=== PATIENT | male | born 1960 | race Caucasian/White ===

== ENCOUNTER 2023-08-23 10:52 | Emergency (ER) | payer BC, SELFPAY ==
[2023-08-23] VITALS (7 sets, daily range): BP systolic 109–119; BP diastolic 68–79; PULSE 71–89; BMI 27.3
--- NOTE | 2023-08-23 11:20 | ED.GENMED ---
History of Present Illness
General
Chief Complaint: Fainting/Passed Out
Source: patient and ambulance crew
Time Seen by Provider: 08/23/23 11:06
Travel History
Have you had any contact with someone who has COVID-19?: No
Do you have any symptoms of coronavirus? Fever > 100 degrees, chills, cough, shortness of breath, sore throat, loss of taste or smell, muscle aches, or headache?: No
History of Present Illness
History of Present Illness:
63-year-old male with past medical history of previous A-fib presenting to the ER via EMS from home after patient had a suppose an syncopal episode after driving home from the gym and playing pickle ball earlier this morning. While at the gym
patient was getting changed and took his shoes off and noticed a rash on his feet and legs, started to drive home when he started to feel as if you are going to pass out. Patient remembers getting in to his driveway at home and then remembers
waking up with his over him in the front seat of their car. had contacted EMS with concerns patient had syncopized. Upon arrival EMS did give the patient 50 mg of Benadryl and 4 mg of Zofran as he had 1 episode of nonbloody nonbilious
emesis. Patient states that he still feels full body generalized weakness but no longer nauseous. He denies any fevers or recent illnesses, bowel changes, urinary symptoms. Patient states he cannot remember what would have potentially caused a
rash as he denies any new clothing, foods, soaps or detergents or anything that may have triggered the rash.
Past History
Past History
ED Past Medical History: Arrthythmia (afib)
ED Past Surgical History: Other (Hernia repair); Negative Cardiac
Social History
Tobacco: Non-smoker
Alcohol: Occasional
Drug: None
Personal:
Living: with family
Employment: Employed
Family History
Family History: Other (Noncontributory)
Review of Systems
Review of Systems
All Other Systems: ROS reviewed and negative except as documented in HPI and ROS
Phy Exam
Physical Exam
Physical Exam:
GENERAL: Alert , in no apparent distress, holding eyes closed for majority of the exam
EYE: conjunctiva clear
NECK: Supple, no significant adenopathy. No airway compromise
ENT: o/p clr, mmm. No tonsillar edema or stridor
CARDIAC: Regular rate and rhythm, no murmur
LUNGS: Clear breath sounds bilaterally, no acute respiratory distress, no wheezes/rales/rhonchi
NEUROLOGICAL: Alert and oriented
SKIN: Warm and dry, diffuse erythematous blanching hives along the neck, abdomen and back and bilateral lower extremities
MUSCULOSKELETAL: well perfused.
PSYCH: Normal and appropriate interaction.
Scores
Heart Failure Risk
Heart Failure Risk Score: Not Applicable
Heart Score for Chest Pain Patients
STEMI patient?: Not applicable
Withdrawal Assessment of Alcohol
Withdrawal Assessment Completed?: Not applicable
Course
Orders/Labs/Results
Orders:
Orders
08/23/23 11:19
Electrocardiogram (*1) Urgent
Reason for Study: Syncope
EKG- Treatment ONCE
08/23/23 11:20
Orthostatic VS- Treatment ONCE
08/23/23 11:48
Complete Blood Count/With Diff Urgent
08/23/23 13:06
COVID-19 Antigen Urgent
Source: Nasal Swab
Comprehensive Metabolic Panel Urgent
Troponin I Urgent
Influenza A+B Rapid Molecular Urgent
HANNAH Source: Nasal Swab
Specimen Description:
08/23/23 13:46
Orthostatic VS- Treatment ONCE
Abnormal Lab Results
08/23/23 08/23/23
11:48 13:06
WBC 12.5 H 10^3/uL
(4.8-10.8)
MPV 10.5 H fL
(7.4-10.4)
Absolute Neuts (auto) 10.2 H 10^3/uL
(1.4-6.5)
Absolute Monos (auto) 0.7 H 10^3/uL
(0.1-0.6)
Neutrophils % 81.1 H %
(42.2-75.2)
Lymphocytes % 11.9 L %
(20.5-51.1)
BUN 23 H mg/dl
(9-20)
Glucose 101 H mg/dl
(70-99)
Total Protein 6.1 L g/dl
(6.3-8.2)
08/23/23 11:48
08/23/23 13:06
Vital Signs
Initial and Last Documented VS:
Initial Vital Signs
BP
109/79
08/23/23 10:55
Last Documented Vital Signs
Pulse Resp BP Pulse Ox
73 16 119/73 81
08/23/23 14:36 08/23/23 11:03 08/23/23 14:36 08/23/23 14:36
MDM/Problems Addressed
Differential Diagnosis Includes:
Vasovagal syncope, cardiogenic syncope, electrolyte disturbance, orthostasis, contact dermatitis of unspecified etiology
MDM/Problems Addressed:
63-year-old male presenting emergency department for evaluation following a syncopal episode and acute onset of rash that developed shortly after playing pickle ball at the gym. Unclear etiology of patient's rash. Rash is still present at time of
my evaluation but patient states the pruritus has mostly resolved. Patient still feeling near syncopal and generally weak. Will check labs, EKG and treat with fluids. Reassessment following.
*Pulse Oximetry
Patient hypoxic: no
*EKG
Interpreted by ED Provider?: Yes
Comparison EKG: no changes
Heart Rate: 71
Rate: normal
[place]: left axis deviation
Ischemia: no ischemia
*Test Clerk Interpretation
Rate: normal
Rhythm: sinus
*Critical Care Note
Total Time (30-74mins, 75-104mins- exclusive of procedures): Not Applicable
ED Attending Note
-
Portions of this chart may have been created with voice recognition software.� Occasional wrong word or��sound alike� substitutions may have occurred due to the inherent limitations of voice recognition software.
Discharge Plan
Departure
Patient Disposition: Home (Routine Discharge)
Date of Disposition: 08/23/23
Time of Disposition: 14:36
Patient with high blood pressure during this ER visit?: No
Discharge Problem:
Syncope, Rash and nonspecific skin eruption
Instructions: Syncope (Fainting) (DC)
Prescriptions:
New
epinephrine [EpiPen 2-Jason] 0.3 mg/0.3 mL auto-injector
0.3 mg IM ONCE PRN (Reason: anaphylaxis) Qty: 2 0RF
No Action
digoxin 0.125 MG tablet
0.125 mg PO DAILY
propafenone [Rythmol SR] 225 MG capsule,extended release 12 hr
225 mg PO BID
omega-3 fatty acids-fish oil [Fish Oil] 1 EACH capsule
1 ea PO DAILY
apixaban [Eliquis] 5 MG tablet
5 mg PO BID
prednisone 20 mg tablet
40 mg PO DAILY Qty: 6 0RF
Referrals:
Kenny Ramos DO [Family Provider] -
Interventions
Interventions:
*Risk Screen - Suicide Last Done: 08/23/23 11:11
*General Assessment Last Done: 08/23/23 11:09
*Neglect/Abuse Screening Last Done: 08/23/23 11:11
ED- Fall Risk Assessment Last Done: 08/23/23 11:12
*ED COVID-19 Vaccine History Last Done: 08/23/23 11:09
ED- Cardiac Assessment Last Done: 08/23/23 11:12
ED- Neurological Assessment Last Done: 08/23/23 11:12
[2023-08-23 12:02] LABS: % Basophils 0.2 % (0-2); % Eosinophils 0.8 % (0-6); % Immature Granulocytes 0.3 % (0-0.5); % Lymphocytes 11.9 % (20.5-51.1); % Monocytes 5.7 % (1.7-9.3); % Neutrophils 81.1 % (42.2-75.2); Absolute Eosinophils 0.1 10^3/uL (0-0.7); Absolute Lymphocytes 1.5 10^3/uL (1.2-3.4); Absolute Monocytes 0.7 10^3/uL (0.1-0.6); Absolute Neutrophils 10.2 10^3/uL (1.4-6.5); Hematocrit 49.1 % (39.0-52.0); Hemoglobin 16.8 g/dL (13.0-18.0); Mean Corp Hgb Conc. 34.2 g/dL (33.0-37.0); Mean Corpuscular Hgb 29.5 pg (27.0-31.0); Mean Corpuscular Volume 86.1 fL (80.0-94.0); Mean Platelet Volume 10.5 fL (7.4-10.4); Nucleated Red Blood Cells % 0 % (-); Platelet Count 203 10^3/uL (130-400); Red Cell Dist. Width 12.6 % (11.5-14.5); White Blood Cell Count 12.5 10^3/uL (4.8-10.8)
--- NOTE | 2023-08-23 12:43 | VATNOTE ---
Attempts [address] IV unsuccessful, another IV nurse to attempt.
[2023-08-23 13:36] LABS: ALT (SGPT) 23 U/L (0-50); AST (SGOT) 25 U/L (17-59); Albumin 3.8 g/dl (3.5-5.0); Alkaline Phosphatase 51 U/L (38-126); Blood Urea Nitrogen 23 mg/dl (9-20); Calcium 8.9 mg/dl (8.4-10.2); Carbon Dioxide 24 mmol/L (22-30); Chloride 107 mmol/L (98-107); Estimated Creatinine Clearance 107 ml/min; Glucose 101 mg/dl (70-99); Potassium 3.9 mmol/L (3.5-5.1); Sodium 136 mmol/L (135-145); Total Bilirubin 0.6 mg/dl (0.2-1.3); Total Protein 6.1 g/dl (6.3-8.2); eGFR > 60.00
[2023-08-23 13:41] LABS: COVID-19 Antigen Negative (Negative)
[2023-08-23 13:47] LABS: Troponin I 0.019 ng/ml
== END 2023-08-23 15:26 | disposition home or self-care (01) ==
LOC: EMR 10:52
PROVIDERS: Physician Assistant Medical; EMERGENCY PHYSICIAN Emergency Medicine; FAMILY PHYSICIAN Family Medicine
DX: R55 Syncope and collapse (principal); R21 Rash and other nonspecific skin eruption; R53.1 Weakness; R11.10 Vomiting, unspecified; Z11.52 Encounter for screening for COVID-19
CPT/HCPCS: 99284; 80053; 84484; 85025; 87502; 87811; 93005

== ENCOUNTER 2023-10-13 08:09 | Emergency (ER) | payer BC, SELFPAY ==
[2023-10-13] VITALS (12 sets, daily range): BP systolic 108–132; BP diastolic 66–96
[2023-10-13 08:44] LABS: % Basophils 0.4 % (0-2); % Eosinophils 1.5 % (0-6); % Immature Granulocytes 0.2 % (0-0.5); % Lymphocytes 29.2 % (20.5-51.1); % Monocytes 6.2 % (1.7-9.3); % Neutrophils 62.5 % (42.2-75.2); Absolute Eosinophils 0.1 10^3/uL (0-0.7); Absolute Lymphocytes 1.5 10^3/uL (1.2-3.4); Absolute Monocytes 0.3 10^3/uL (0.1-0.6); Absolute Neutrophils 3.2 10^3/uL (1.4-6.5); Hematocrit 42.2 % (39.0-52.0); Hemoglobin 14.3 g/dL (13.0-18.0); Mean Corp Hgb Conc. 33.9 g/dL (33.0-37.0); Mean Corpuscular Hgb 28.9 pg (27.0-31.0); Mean Corpuscular Volume 85.3 fL (80.0-94.0); Mean Platelet Volume 10.1 fL (7.4-10.4); Nucleated Red Blood Cells % 0 % (-); Platelet Count 200 10^3/uL (130-400); Red Blood Cell Count 4.95 10^6/uL (4.70-6.10); Red Cell Dist. Width 13.2 % (11.5-14.5); White Blood Cell Count 5.2 10^3/uL (4.8-10.8)
--- NOTE | 2023-10-13 08:46 | ED.GENMED ---
History of Present Illness
General
Chief Complaint: Heart Rate Problem
Source: patient and spouse
Exam Limitations: none
Time Seen by Provider: 10/13/23 08:24
Nursing documentation reviewed up to this point in time: agreed with
Travel History
Have you had any contact with someone who has COVID-19?: No
Do you have any symptoms of coronavirus? Fever > 100 degrees, chills, cough, shortness of breath, sore throat, loss of taste or smell, muscle aches, or headache?: No
History of Present Illness
History of Present Illness:
Patient with history of paroxysmal atrial fibrillation, status post ablation in 2019 and in sinus rhythm since then, presents to ED secondary to recurrent shortness of breath while walking up the stairs last night around 8 PM. When he came
downstairs, and checked his Apple Watch, he was noted to be back in atrial fibrillation rhythm. Patient was able to go to sleep last night without difficulty. Unfortunately, when he woke up this morning, he once again experienced similar shortness
of breath with exertion and he was still in atrial fibrillation rhythm. Patient is no longer taking Eliquis. Denies chest pain. Denies nausea or vomiting. Patient reports 'lightheadedness' when standing up. Denies recent illness. Denies recent
travel or surgery. Of note, patient reports drinking increased amount of alcohol during wedding celebration 3 days ago.
Past History
Past History
ED Past Medical History: Arrthythmia (afib)
ED Past Surgical History: Other (Hernia repair); Negative Cardiac
Social History
Tobacco: Non-smoker
Alcohol: Occasional
Drug: None
Personal:
Living: with family
Employment: Employed
Family History
Family History: Other (Noncontributory)
Review of Systems
Review of Systems
Allergies reviewed?: Yes
All Other Systems: ROS reviewed and negative except as documented in HPI and ROS
Constitutional: Reports no symptoms
EENT: Reports no symptoms
Respiratory: Reports trouble breathing
Cardiac: Denies chest pain
ABD/GI: Reports no symptoms
: Reports no symptoms
Musculoskeletal: Reports no symptoms
Skin: Reports no symptoms
Neurological: Reports dizzy
Phy Exam
Physical Exam
Physical Exam:
Physical Exam
General: mild distress, not acutely ill. afebrile
Head: nc/at. eomi
Neck: supple. no meningeal signs.
Heart: irregularly irregular, no murmur. equal radial pulses.
Lungs: no acute respiratory distress. clear bilaterally
Abdomen: normal bowel sounds. not tender.
Neuro: alert and oriented. no focal neurological deficits
Skin: no rash
Psychiatric: well kept. interactive and cooperative
Extremities: no edema. no calf tenderness.
Course
Orders/Labs/Results
Orders:
Orders
10/13/23 08:13
ECG [Electrocardiogram (*1)] Urgent
Reason for Study: Atrial Fibrillation
EKG- Treatment ONCE
10/13/23 08:34
CMP [Comprehensive Metabolic Panel] Urgent
Complete Blood Count/With Diff Urgent
Magnesium Urgent
NT-proBNP Urgent
Comment: MAG & PROBNP ADDED ON BY FLOOR 8:45AM 10-13-23
TSH Urgent
Troponin I Urgent
10/13/23 08:44
Add On- LAB Urgent
Tests Added?: magnesium, ProBNP
10/13/23 08:45
0.9% Sodium Chloride 500 ml [Nss] 500 ml IV BOLUS
Diltiazem 125 mg/125 ml Nss [Cardizem] 125 mg in 125 ml IV PER PROTOCOL
Initial dose in mg/hr, then titrate:: 5
Titrate to keep:: Heart rate 80-100 bpm
Titrate by mg/hr:: 5 mg/hr
Frequency of titrations (minutes):: 15
Maximum dose in mg/hr:: 15
Diltiazem HCl [Cardizem] 20 mg IV NOW STA
10/13/23 11:31
Electrocardiogram (*1) Stat
Comment: ALREADY DONE IN ED
10/13/23 12:03
Apixaban [Eliquis] 5 mg PO NOW STA
Diltiazem Extended Release [Cardizem Cd] 240 mg PO NOW STA
Abnormal Lab Results
10/13/23
08:34
Chloride 108 H mmol/L
(98-107)
Glucose 134 H mg/dl
(70-99)
10/13/23 08:34
10/13/23 08:34
Vital Signs
Initial and Last Documented VS:
Initial Vital Signs
Temp Pulse Resp BP Pulse Ox
98.8 F 100 20 132/96 98
10/13/23 08:11 10/13/23 08:11 10/13/23 08:11 10/13/23 08:11 10/13/23 08:11
Last Documented Vital Signs
Temp Pulse Resp BP Pulse Ox
98.8 F 88 22 111/73 97
10/13/23 08:11 10/13/23 11:30 10/13/23 11:30 10/13/23 11:15 10/13/23 09:15
MDM/Problems Addressed
MDM/Problems Addressed:
History and exam consistent with recurrent rapid atrial fibrillation, possibly triggered by recent increased alcohol consumption along with subsequent dehydration. Patient started on Cardizem infusion, with improvement in heart rate, along with
resolution of patient's presenting symptoms. As patient remains in atrial fibrillation rhythm, now rate controlled, discussed treatment options with on-call fruit and vegetable parer, Dr. Butts. Agrees with plan to discharge patient home for outpatient
follow-up. Recommend starting patient on Eliquis along with Cardizem 240 mg daily. Cardiology office will contact patient for an outpatient appointment. Patient and spouse expressed agreement with treatment plan.
Critical care statement: A total of 40 minutes of critical care time was provided for this patient. This includes management of unstable vital signs, evaluation of the patient at bedside, reviewing the patient's pertinent medical records, discussion
with consultants, review of old EKGs and review of pertinent medical records. This time with separate from time utilized to perform the aforementioned documented procedures
*EKG
Interpreted by ED Provider?: Yes
EKG Intrepretation Date: 10/13/23
Heart Rate: 114
Rate: tachycardiac
Rhythm: a-fib
[place]: left axis deviation
Interval: normal interval
*Critical Care Note
Total Time (30-74mins, 75-104mins- exclusive of procedures): 40 min
ED Attending Note
-
Portions of this chart may have been created with voice recognition software.� Occasional wrong word or��sound alike� substitutions may have occurred due to the inherent limitations of voice recognition software.
Discharge Plan
Departure
Patient Disposition: Home (Routine Discharge)
Date of Disposition: 10/13/23
Time of Disposition: 12:06
Patient with high blood pressure during this ER visit?: Yes
Discharge Problem:
Atrial fibrillation, rapid
Instructions: Atrial Fibrillation (DC)
Prescriptions:
New
Eliquis 5 mg tablet
5 mg PO BID Qty: 60 0RF
diltiazem HCl [Cardizem CD] 240 mg capsule,extended release 24hr
240 mg PO DAILY Qty: 30 0RF
No Action
epinephrine [EpiPen 2-Jason] 0.3 mg/0.3 mL auto-injector
0.3 mg IM ONCE PRN (Reason: anaphylaxis) Qty: 2 0RF
multivitamin Tablet
1 tab PO DAILY
atorvastatin [Lipitor] 10 mg Tablet
10 mg PO DAILY
aspirin [Aspir-Low] 81 mg Tablet,Delayed Release (Dr/Ec)
81 mg PO DAILY
Referrals:
Jm Strauss MD [Active] -
Kenny Ramos DO [Family Provider] -
Activity Restrictions/Additional Instructions:
As discussed, please follow-up with your fruit and vegetable parer for further evaluation and treatment. Your prescription has been sent electronically to [facility] pharmacy in [place].
Interventions
Interventions:
*Risk Screen - Suicide Last Done: 10/13/23 08:18
*Neglect/Abuse Screening Last Done: 10/13/23 08:18
ED- Fall Risk Assessment Last Done: 10/13/23 08:37
*ED COVID-19 Vaccine History Last Done: 10/13/23 08:11
*Nursing Disposition Last Done: 10/13/23 12:19
ED- Cardiac Assessment Last Done: 10/13/23 08:37
ED- Pulmonary Assessment Last Done: 10/13/23 08:37
Discharge Date and Time
Discharge Date/Time: 10/13/23 12:28
Print Language: KINYARWANDA
[2023-10-13] MEDS: CARDIZEM 20 MG IV (08:50)
[2023-10-13 08:52] LABS: ALT (SGPT) 26 U/L (0-50); AST (SGOT) 26 U/L (17-59); Albumin 4.4 g/dl (3.5-5.0); Alkaline Phosphatase 56 U/L (38-126); Blood Urea Nitrogen 12 mg/dl (9-20); Calcium 9.4 mg/dl (8.4-10.2); Carbon Dioxide 26 mmol/L (22-30); Chloride 108 mmol/L (98-107); Glucose 134 mg/dl (70-99); Potassium 4.3 mmol/L (3.5-5.1); Sodium 137 mmol/L (135-145); Total Bilirubin 0.5 mg/dl (0.2-1.3); eGFR > 60.00
[2023-10-13] MEDS: NSS 500 IV (09:00)
[2023-10-13] MEDS: CARDIZEM 125 IV (09:01)
[2023-10-13 09:04] LABS: Troponin I < 0.012 ng/ml
[2023-10-13 09:17] LABS: Magnesium 2.2 mg/dl (1.6-2.3)
[2023-10-13 09:23] LABS: TSH 1.16 uIU/ml (0.47-4.68)
[2023-10-13 09:25] LABS: NT-proBNP 1180 pg/ml
[2023-10-13] MEDS: CARDIZEM CD 240 MG PO (12:09)
[2023-10-13] MEDS: ELIQUIS 5 MG PO (12:09)
== END 2023-10-13 12:28 | disposition home or self-care (01) ==
LOC: EMR 08:09
PROVIDERS: EMERGENCY PHYSICIAN Emergency Medicine; FAMILY PHYSICIAN Family Medicine
DX: I48.20 Chronic atrial fibrillation, unspecified (principal); E86.0 Dehydration; R03.0 Elevated blood-pressure reading, without diagnosis of hypertension
CPT/HCPCS: 99291; 96374; 96361; 96376; 80053; 83735; 83880; 84443; 84484; 85025; 93005

== ENCOUNTER 2023-10-22 07:03 | Day surgery (SDC) | payer BC, OTHER, SELFPAY | END 2023-10-22 09:15 | disposition home or self-care (01) | LOC: CATH 07:03 | PROVIDERS: ATTENDING PHYSICIAN Internal Medicine; FAMILY PHYSICIAN Family Medicine; OTHER PHYSICIAN Internal Medicine Cardiovascular Disease | DX: I48.91 Unspecified atrial fibrillation (principal); I08.1 Rheumatic disorders of both mitral and tricuspid valves; E78.00 Pure hypercholesterolemia, unspecified; Z79.01 Long term (current) use of anticoagulants; Z79.82 Long term (current) use of aspirin | CPT/HCPCS: 93312; 93320; 93325; 92960; 93005 ==

== ENCOUNTER 2024-01-14 21:31 | Emergency (ER) | payer BC, SELFPAY ==
[2024-01-14] VITALS (8 sets, daily range): BP systolic 108–113; BP diastolic 67–77; PULSE 53–74; BMI 28.5
[2024-01-14 21:53] LABS: % Basophils 0.2 % (0-2); % Immature Granulocytes 0.3 % (0-0.5); % Lymphocytes 19.1 % (20.5-51.1); % Monocytes 4.3 % (1.7-9.3); % Neutrophils 75.1 % (42.2-75.2); Absolute Eosinophils 0.1 10^3/uL (0-0.7); Absolute Lymphocytes 1.8 10^3/uL (1.2-3.4); Absolute Monocytes 0.4 10^3/uL (0.1-0.6); Hematocrit 43.3 % (39.0-52.0); Hemoglobin 14.8 g/dL (13.0-18.0); Mean Corp Hgb Conc. 34.2 g/dL (33.0-37.0); Mean Corpuscular Hgb 29.5 pg (27.0-31.0); Mean Corpuscular Volume 86.4 fL (80.0-94.0); Mean Platelet Volume 10.7 fL (7.4-10.4); Nucleated Red Blood Cells % 0 % (-); Platelet Count 198 10^3/uL (130-400); Red Blood Cell Count 5.01 10^6/uL (4.70-6.10); White Blood Cell Count 9.3 10^3/uL (4.8-10.8)
[2024-01-14 22:13] LABS: ALT (SGPT) 17 U/L (0-50); AST (SGOT) 22 U/L (17-59); Albumin 3.7 g/dl (3.5-5.0); Alkaline Phosphatase 46 U/L (38-126); Blood Urea Nitrogen 20 mg/dl (9-20); Calcium 9.5 mg/dl (8.4-10.2); Carbon Dioxide 27 mmol/L (22-30); Chloride 105 mmol/L (98-107); Estimated Creatinine Clearance 85 ml/min; Glucose 127 mg/dl (70-99); Potassium 4.3 mmol/L (3.5-5.1); Sodium 136 mmol/L (135-145); Total Bilirubin 0.4 mg/dl (0.2-1.3); Total Protein 5.9 g/dl (6.3-8.2); eGFR > 60.00
--- NOTE | 2024-01-14 22:41 | ED.GENMED ---
History of Present Illness
General
Chief Complaint: Fainting/Passed Out
Source: patient
Exam Limitations: none
Time Seen by Provider: 01/14/24 22:19
History of Present Illness
History of Present Illness:
This is a 63 year old male that comes in with c/o syncope. States that he was playing Pickle ball and he broke out in hives. State that he took Benadryl and he started to feel weak so he laid down on the floor. States that he tried to get up and he
felt dizzy so he laid down. States that this has happened before and he had called his . state that she got there and she called EMS. States that he was unable to get up and he passed out for about 10 seconds. States that this was not as bad as
the last time as before he vomited. Denies any fever, chills, chest pain, SOB, abd pain, nausea, vomiting, diarrhea, headache, urinary burning.
Past History
Past History
ED Past Medical History: Arrthythmia (afib), Cancer (Skin CA Basal cell) and Other (Diverticulitis, Lyme disease)
ED Past Surgical History: Cardiac (Ablation), Orthopedic (Left thumb tendon repair) and Other (Hernia repair, Hemorrhoidectomy, brain surgery)
Social History
Tobacco: Non-smoker
Alcohol: Occasional
Drug: None
Personal:
Living: with family
Employment: Employed
Family History
Family History: Other (Noncontributory)
Review of Systems
Review of Systems
All Other Systems: ROS reviewed and negative except as documented in HPI and ROS
Constitutional: Reports no symptoms; Denies fever or chills
EENT: Reports no symptoms
Respiratory: Reports no symptoms; Denies cough or trouble breathing
Cardiac: Reports no symptoms; Denies chest pain
ABD/GI: Reports no symptoms; Denies abdominal pain, nausea, vomiting or diarrhea
: Reports no symptoms; Denies dysuria, frequency or urgency
Musculoskeletal: Reports no symptoms
Skin: Reports other (had hives)
Neurological: Reports dizzy; Denies headache
Psychiatric: Reports no symptoms
Phy Exam
General Physical Exam
General Presentation: well appearing and no apparent distress
General age: appears stated age
General Skin: warm and dry
General Habitus: normal
General Mental: alert
General Hydration: appears well hydrated
ENT Exam
ENT Exam: TM's normal, pharynx normal and neck supple
Eye Exam
Eye Exam: EOMI
Cardiovascular Exam
Cardiovascular Exam: no edema, no murmur, normal peripheral pulses and bradycardia
Pulmonary Exam
Pulmonary Exam: lungs clear, no respiratory distress, no rales, chest non tender, no crackles, no rhonchi, no wheezing and no cough
Gastrointestinal Exam
Gastrointestinal Exam: normal bowel sounds, non tender, soft, no organomegaly, no pulsatile mass and non distended
Musculoskeletal Exam
Musculoskeletal Exam: full ROM and no edema
Skin Exam
Skin Exam: normal color, warm/dry, no rash, no petechia and other (negative for any hives at this time)
Psychiatric Exam
Psychiatric Exam: normal mood/affect
Course
Orders/Labs/Results
Orders:
Orders
01/14/24 21:38
EKG [Electrocardiogram (*1)] Urgent
Reason for Study: Tachycardia
EKG- Treatment ONCE
01/14/24 21:45
Complete Blood Count/With Diff Urgent
Comprehensive Metabolic Panel Urgent
01/14/24 22:41
Orthostatic VS- Treatment ONCE
Abnormal Lab Results
01/14/24
21:45
MPV 10.7 H fL
(7.4-10.4)
Absolute Neuts (auto) 7.0 H 10^3/uL
(1.4-6.5)
Lymphocytes % 19.1 L %
(20.5-51.1)
Glucose 127 H mg/dl
(70-99)
Total Protein 5.9 L g/dl
(6.3-8.2)
01/14/24 21:45
01/14/24 21:45
glucose nonfasting. Total protein slightly low.
Vital Signs
Initial and Last Documented VS:
Initial Vital Signs
Temp Pulse Resp BP Pulse Ox
98.0 F 64 17 108/72 97
01/14/24 21:34 01/14/24 21:34 01/14/24 21:34 01/14/24 21:34 01/14/24 21:34
Last Documented Vital Signs
Temp Pulse Resp BP Pulse Ox
98.0 F 54 14 113/74 96
01/14/24 21:34 01/14/24 23:15 01/14/24 23:15 01/14/24 23:00 01/14/24 23:15
MDM/Problems Addressed
Differential Diagnosis Includes:
allergic reaction with Syncope
MDM/Problems Addressed:
This is a 63 year old male that comes in with c/o getting hives after playing Pickle ball. State that he took Benadryl and then felt weak. states that he laid down on the floor and he was dizzy. States that his came and he passed out when the
EMS got there.
Will check labs, Give IV fluids and Orthostatics.
Back into see patient. Patient did not tilt with his Orthostatics but explained that he does have a low BP. States that this is normal for him. Encouraged patient to follow up with the family doctor. Make sure he is drinking 8-8oz glasses daily.
Patient can also take Pepcid 20mg when he feels that the hives are coming on with the Benadryl to help decrease the histamine relief. Patient to return with any concerns.
Chronic conditions affecting care:
Allergic reaction with syncope in the past
Acute Exacerbation and/or Progression of Chronic Illness:
Hives with Syncope in the past
*Pulse Oximetry
Patient hypoxic: no
*EKG
Interpreted by ED Provider?: Yes
Heart Rate: 63
Rate: normal
Rhythm: sinus
[place]: left axis deviation
Interval: normal interval
QRS Pattern: low voltage
Ischemia: no ischemia
*Material Worker Interpretation
Rate: bradycardiac
Heart Rate: 57
Rhythm: sinus
*Critical Care Note
Total Time (30-74mins, 75-104mins- exclusive of procedures): Not Applicable
ED Attending Note
-
Portions of this chart may have been created with voice recognition software.� Occasional wrong word or��sound alike� substitutions may have occurred due to the inherent limitations of voice recognition software.
Discharge Plan
Departure
Patient Disposition: Home (Routine Discharge)
Date of Disposition: 01/14/24
Time of Disposition: 23:22
Patient with high blood pressure during this ER visit?: No
Condition: Good
Covid-19: Not Applicable
Discharge Problem:
Hives, Syncope
Instructions: Hives, Syncope (Fainting) (DC)
Prescriptions:
No Action
epinephrine [EpiPen 2-Jason] 0.3 mg/0.3 mL auto-injector
0.3 mg IM ONCE PRN (Reason: anaphylaxis) Qty: 2 0RF
multivitamin Tablet
1 tab PO DAILY
atorvastatin [Lipitor] 10 mg Tablet
10 mg PO DAILY
Eliquis 5 mg tablet
5 mg PO BID Qty: 60 0RF
diltiazem HCl [Cardizem CD] 240 mg capsule,extended release 24hr
120 mg PO DAILY
Referrals:
UNKNOWN - PT DOES,NOT KNOW [Unknown Provider] -
Activity Restrictions/Additional Instructions:
As discussed, your blood work is normal. You have been given IV fluids to help increase your volume. Please increase your water intake to 8-8oz glasses daily. Follow up with the family doctor for recheck. IF YOU HAVE ANY OTHER CONCERNS PLEASE RETURN
TO THE EMERGENCY ROOM.
Interventions
Interventions:
*Risk Screen - Suicide Last Done: 01/14/24 21:34
*General Assessment Last Done: 01/14/24 21:34
*Neglect/Abuse Screening Last Done: 01/14/24 21:34
ED- Fall Risk Assessment Last Done: 01/14/24 21:34
*ED COVID-19 Vaccine History Last Done: 01/14/24 21:34
ED- Cardiac Assessment Last Done: 01/14/24 21:42
ED- Neurological Assessment Last Done: 01/14/24 21:42
Discharge Date and Time
Print Language: INDONESIAN
== END 2024-01-14 23:38 | disposition home or self-care (01) ==
LOC: EMR 21:31
PROVIDERS: Student in an Organized Health Care Education/Training Program; EMERGENCY PHYSICIAN Emergency Medicine; FAMILY PHYSICIAN Family Medicine
DX: R55 Syncope and collapse (principal); L50.9 Urticaria, unspecified
CPT/HCPCS: 99284; 80053; 85025; 93005

== ENCOUNTER 2024-03-18 14:12 | Emergency (ER) | payer BC, SELFPAY ==
[2024-03-18] VITALS (17 sets, daily range): BP systolic 70–144; BP diastolic 48–103; BMI 27.6
[2024-03-18] MEDS: ADRENALIN 0.3 MG IM (14:34)
[2024-03-18] MEDS: DECADRON 10 MG IV (14:35)
[2024-03-18] MEDS: PEPCID 20 MG IV (14:35)
[2024-03-18] MEDS: BENADRYL 25 MG IV (14:35)
[2024-03-18] MEDS: NSS 1000 IV (14:47)
--- NOTE | 2024-03-18 14:58 | ED.GENMED ---
History of Present Illness
General
Chief Complaint: Allergic Reaction
Source: patient and spouse
Exam Limitations: none
Time Seen by Provider: 03/18/24 14:21
History of Present Illness
History of Present Illness:
Patient broke out in hives then shortly after became lightheaded and near syncopal. Diaphoretic clammy. No shortness of breath no trouble breathing or swallowing. No chest pain. On arrival to the ER patient was very near syncopal with a blood
pressure of 70/40. Did take 2 doses of Benadryl at home, 25 mg tablets. History of similar episodes x 4 in the past
Past History
Past History
ED Past Medical History: Arrthythmia (afib), Cancer (Skin CA Basal cell) and Other (Diverticulitis, Lyme disease)
ED Past Surgical History: Cardiac (Ablation), Orthopedic (Left thumb tendon repair) and Other (Hernia repair, Hemorrhoidectomy, brain surgery)
Social History
Tobacco: Non-smoker
Alcohol: Occasional
Drug: None
Personal:
Living: with family
Employment: Employed
Family History
Family History: Other (Noncontributory)
Review of Systems
Review of Systems
All Other Systems: Not applicable
Constitutional: Denies fever
Respiratory: Denies trouble breathing
Cardiac: Denies chest pain or palpitations
Phy Exam
Physical Exam
Physical Exam:
GENERAL: Alert and oriented. Pale. Hypotensive. Diaphoretic. Small amount of hives on his back
EYE: Orbits normal.
NECK: Supple.
ENT: Pharynx without erythema. No airway issues. Speech normal.
CARDIAC: Regular rate and rhythm without any obvious murmurs.
LUNGS: Clear breath sounds,normal
ABDOMEN: Soft, without focal tenderness or distention
NEUROLOGICAL: Alert and oriented , grossly non-focal
SKIN: Warm but diaphoretic. Hives on the back
MUSCULOSKELETAL: No edema,no deformity.Good color
PSYCH: Normal and appropriate interaction.
Course
Orders/Labs/Results
Orders:
Orders
03/18/24 14:21
Dexamethasone Pf [Decadron] 10 mg .ROUTE .STK-MED ONE
EPINEPHrine PF [Adrenalin] 1 mg .ROUTE .STK-MED ONE
Famotidine [Pepcid] 20 mg .ROUTE .STK-MED ONE
03/18/24 14:22
Diphenhydramine [Benadryl] 50 mg .ROUTE .STK-MED ONE
03/18/24 14:25
Electrocardiogram (*1) Urgent
Reason for Study: Syncope
EKG- Treatment ONCE
03/18/24 14:34
EPINEPHrine PF [Adrenalin] 0.3 mg IM NOW STA
Famotidine [Pepcid] 20 mg IV NOW STA
03/18/24 14:37
Cardiac Monitoring- Treatment ONCE
IV Insert/Care/Rem.- Treatment PRN
0.9% Sodium Chloride 1000 ml [Nss] 1,000 ml IV BOLUS
Dexamethasone Sod Phosphate [Decadron] 10 mg IV NOW STA
Diphenhydramine [Benadryl] 25 mg IV NOW STA
Pulse Ox/cont/shift [RESP] Stat
Quantity: 1
Vital Signs
Initial and Last Documented VS:
Initial Vital Signs
Temp Pulse Resp BP Pulse Ox
98.6 F 103 18 144/103 98
03/18/24 14:16 03/18/24 14:16 03/18/24 14:16 03/18/24 14:16 03/18/24 14:16
Last Documented Vital Signs
Temp Pulse Resp BP Pulse Ox
97.8 F 75 15 127/75 97
03/18/24 14:21 03/18/24 17:15 03/18/24 16:45 03/18/24 17:15 03/18/24 17:15
*Pulse Oximetry
Patient hypoxic: no
*EKG
Interpreted by ED Provider?: Yes
Interpretation: abnormal
Comparison EKG: no changes
Heart Rate: 78
Rate: normal
Rhythm: sinus
Pep: left axis deviation
Interval: normal interval
QRS Pattern: right bundle branch block (inc)
*Critical Care Note
Total Time (30-74mins, 75-104mins- exclusive of procedures): 35
Update Note
Update Note:
1500... Rechecked multiple times. Patient is main stable. No airway issues. Blood pressure about 115/75. Fully alert. Continued observation. Syncope either directly as a anaphylactic issue or possibly secondary vasovagal issue.
1800... Patient remained clinically stable and nontoxic. In no distress. Comfortable with outpatient management. Either anaphylaxis from unknown etiology or possibly hives with vasovagal issue.
ED Attending Note
-
Portions of this chart may have been created with voice recognition software.� Occasional wrong word or��sound alike� substitutions may have occurred due to the inherent limitations of voice recognition software.
Discharge Plan
Departure
Patient Disposition: Home (Routine Discharge)
Date of Disposition: 03/18/24
Time of Disposition: 18:04
Patient with high blood pressure during this ER visit?: Yes
Discharge Problem:
Hives/allergic reaction
Instructions: Anaphylaxis, Hives (DC), BLOOD PRESSURE
Prescriptions:
New
epinephrine [EpiPen] 0.3 mg/0.3 mL auto-injector
0.3 mg IM .STAT PRN (Reason: anaphylaxis) Qty: 1 0RF
prednisone 50 mg tablet
50 mg PO DAILY Qty: 5 0RF
No Action
epinephrine [EpiPen 2-Jason] 0.3 mg/0.3 mL auto-injector
0.3 mg IM ONCE PRN (Reason: anaphylaxis) Qty: 2 0RF
multivitamin Tablet
1 tab PO DAILY
atorvastatin [Lipitor] 10 mg Tablet
10 mg PO DAILY
Eliquis 5 mg tablet
5 mg PO BID Qty: 60 0RF
diltiazem HCl [Cardizem CD] 240 mg capsule,extended release 24hr
120 mg PO DAILY
Referrals:
Kenny Ramos DO [Family Provider] - Follow up in 2-3 days
Activity Restrictions/Additional Instructions:
Your prescriptions were sent to your pharmacy
Continue Benadryl and Pepcid for the next 2 to 3 days
Call your microsystems engineer first thing tomorrow morning for close follow-up
Interventions
Interventions:
*Risk Screen - Suicide Last Done: 03/18/24 14:26
*General Assessment Last Done: 03/18/24 14:21
*Neglect/Abuse Screening Last Done: 03/18/24 14:26
ED- Fall Risk Assessment Last Done: 03/18/24 14:21
*ED COVID-19 Vaccine History Last Done: 03/18/24 14:21
ED- Cardiac Assessment Last Done: 03/18/24 14:21
ED- Pulmonary Assessment Last Done: 03/18/24 14:21
ED-Skin Assessment Last Done: 03/18/24 14:21
Discharge Date and Time
Print Language: DIVEHI
== END 2024-03-18 18:13 | disposition home or self-care (01) ==
LOC: EMR 14:12
PROVIDERS: EMERGENCY PHYSICIAN Emergency Medicine; FAMILY PHYSICIAN Family Medicine
DX: T78.40XA Allergy, unspecified, initial encounter (principal); L50.0 Allergic urticaria; X58.XXXA Exposure to other specified factors, initial encounter
CPT/HCPCS: 99291; 96374; 96375 ×2; 96372; 96361; 93005